=== PATIENT | male | born 1935 | race Caucasian/White ===

== ENCOUNTER → 2017-04-03 | Outpatient (CLI) | payer MEDICARE, OTHER ==
--- NOTE | 2017-04-03 11:50 | RADRPT ---
PROCEDURE: XR Left Hip and pelvis. CLINICAL INDICATION: Left hip pain. Pelvic pain. TECHNIQUE: Two views. Frontal pelvis and lateral left hip. COMPARISON: 01/27/2013. FINDINGS: There is no fracture or dislocation. The soft tissues are normal. There is a total right hip arthroplasty which appears satisfactory. There are severe degenerative ch anges of the left hip with joint space narrowing, osteophytes, subarticular sclerosis, subarticular cysts, and mild deformity. Multiple surgical clips are present in the pelvis inferiorly. The upper pelvis is not included on the images. There is no lytic lesion. IMPRESSION: 1. Total right hip arthroplasty. 2. Severe degenerative changes of the left hip. 3. Multiple surgical clips in the pelvis inferiorly. 4. Upper pelvis not included on the images. RPTAT: QQ .Colt Chang MD, Date Time Electronically viewed and signed by .Colt Chang MD, on 04/03/2017 11:50 .R/
--- NOTE | 2017-04-04 03:19 | HKNOTE ---
DATE OF SERVICE: 04/03/2017 MAIN COMPLAINT: Pain in the left hip. HISTORY OF MAIN COMPLAINT: The patient is an 81-year-old male who complains of pain in his left hip which has been present for about 6 to 8 months. The patient has previously undergone a right total hip replacement which was performed by me in October of 2005. He has been totally delighted with the result of his right hip replacement. He saw me last in 2012 complaining of pain in his opposite hip . I diagnosed lumbar radiculopathy and referred him to a spine surgeon. Dr. Rojas performed a lumb ar laminectomy in July of 2013 and he got complete relief of his pain. The left groin pain started about 6 to 8 months ago without any history of injury. PRESENT COMPLAINTS: The pain is predominantly in the left groin, but radiates somewhat laterally to wards the greater trochanter. Pain is aggravated by walking, weightbearing and stair climbing. He is not able to run. He does not get rest pain. He takes Aleve or Tylenol for the pain. He has no numbness or tingling in his legs. On a level surface, he can walk no more than [address]. He does not use a walking aid. He feels unsteady walking most of the time. He does not parra ve a clear-cut limp. His leg lengths feel equal. He cannot clip his toenails or tie his shoelaces on the left side. SPORTING ACTIVITIES: None. PAST ORTHOPEDIC HISTORY AND PREVIOUS ORTHOPEDIC OPERATIONS: 1. Right hip replacement by Dr. Gray, 2005. 2. Lumbar spine surgery, 2013. PRIOR CORTISONE INTAKE: One injection into his hip "a long time ago," which did not work. ALCOHOL INTAKE: One glass of wine and one vodka drink daily. OTHER JOINT PROBLEMS: Left knee occasionally hurts. No locking. No swelling. No instability. Wayne bradford had a Sanchez's cyst in the left knee a year or two ago, which was treated with physical therapy and it went away. BLOOD TESTS FOR ARTHRITIS: None. PRIOR INJURIES TO HIPS OR KNEES: None. WORK STATUS: Patient is a retired stationary steam engineer. PAST MEDICAL HISTORY: 1. Hypertension. 2. History of prostate cancer. PAST SURGICAL HISTORY: Right hip replacement by Dr. Gray, 2005. Lumbar spine surgery by Dr. Rojas, July 2013. Gallbladder removed, Dr. Mcclain, January 2014. Prostatectomy, Dr. Martinez, 1996 . DRUG ALLERGIES: VISAPAC (USED IN CAT SCANS). MEDICATIONS: 1. Atenolol. 2. Amlodipine. 3. Crestor. 4. Aspirin. 5. Multivitamins. 6. Avodart. FAMILY HISTORY: Noncontributory other than history of "heart problems." SYSTEMS REVIEW: Difficulty with urination, excess night urination, hypertension, gait disturbance, otherwise entirely negative. HABITS: Patient does not smoke. He drinks 2 alcoholic beverages a night. SLAG MOTOR OPERATOR: Dr. Krzysztof Frances, [facility], [address], [place], [place] [address] ) PHYSICAL EXAMINATION: GENERAL: A remarkably youthful and fit-looking 81-year-old male. He walks without a walking aid. VITAL SIGNS: Height 5 feet 10 inches, weight 180 pounds. Blood pressure 172/75, temperature 98.2. NEUROLOGIC: Motor examination reveals no muscle deficit in the lower extremities. Deep tendon refle xes in the lower extremities: Right knee jerk plus, left knee jerk plus, right ankle jerk plus, lef t ankle jerk plus. Straight leg raising is negative bilaterally at 80 degrees. Lasegue and KENNA yamilet ts are negative. RIGHT HIP: A full range of motion without pain. LEFT HIP: Flexion 95 degrees, external rotation 35 degrees, internal rotation -10 degrees, abductio n 35 degrees, external rotation contracture 10 degrees. Pain at all limits of left hip motion. No tenderness anywhere around the left hip. RIGHT KNEE: The right knee shows normal alignment. Active and passive extension is 0 degrees. Activ e and passive flexion is 135 degrees. The medial and lateral collateral ligaments and cruciate ligam ents are intact. Vangie test is negative. There is no effusion, tenderness, scarring, crepitus, or cysts. The patella tracks normally. There is no tenderness on the articular surface of the patella o r in the patellar groove. The Q angle is normal. LEFT KNEE: The left knee shows normal alignment. Active and passive extension is 0 degrees. Active and passive flexion is 135 degrees. The medial and lateral collateral ligaments and cruciate ligamen ts are intact. Vangie test is negative. There is no effusion, tenderness, scarring, crepitus, or cy sts. The patella tracks normally. There is no tenderness on the articular surface of the patella or in the patellar groove. The Q angle is normal. IMAGING: Plain x-rays of the pelvis and bilateral hips obtained today at the [facility] were reviewed. The right hip shows total hip replacement components, all well aligned and a ll well attached to the bone without evidence of loosening or osteolysis. No wear seen in the socke t liner. Left hip seen on the same images shows exceedingly severe degenerative osteoarthritis of the left hi p joint with complete ledg-jg-btgx contact throughout the surfaces of the socket and the femoral hea d, subchondral sclerosis, small interosseous cyst formation. DIAGNOSES: 1. 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 2. Status post right total hip replacement. 3. Status post prostatectomy for prostate cancer. 4. Hypertension. MANAGEMENT: Patient is advised that he will definitely need to have a left hip replacement at some time in the near future. The surgery and some of the major possible complications were discussed wi th him in a fair amount of detail. The patient was given my manual titled "Arthritis of the Hip Joint" which contains information elizabeth rning the various alternatives of treatment. It includes various forms of conservative treatment, in cluding the use of nonsteroidal anti-inflammatory medications and their dangers. Various surgical al ternatives are discussed. The technique of total hip replacement is discussed in detail, including p ossible complications. Included also is a section on the possible complications of blood transfusion , a section on postoperative precautions, and an exercise program to follow at home after total hip replacement. The long-term care of a total hip replacement implant is also covered in detail. The wayne bradford was instructed to read this manual in its entirety since it is, in and of itself, a form of in formed consent. After reading this manual, the patient will make a list of further questions that clara y not have been covered adequately. The patient was further advised that this manual, although exhau stive in nature, is only intended to supplement and complement a one-on-one discussion with me. The patient was referred to my website, [employer]. He was advised that because of my own back problems, for which I will soon be having surgery, I am r eferring him to my associate, Dr. Bharathi Hatch. The patient was introduced to Dr. Hatch today i n my office. When he is ready to schedule his surgery, we will contact our burn table operator, Maximo Duque, who will arrange for preoperative medical clearance, as well as cardiac clearance. Patient will also r eturn to see Dr. Hatch for a full consultation prior to his surgery. He indicates that he would like to have the surgery "after the new year." Dictated By: JEMIMA KIDD/MISSY Conf#: [id number] DID#: [id number]
--- NOTE | 2017-04-04 03:19 | HKNOTE ---
DATE OF SERVICE: 04/03/2017 MAIN COMPLAINT: Pain in the left hip. HISTORY OF MAIN COMPLAINT: The patient is an 81-year-old male who complains of pain in his left hip which has been present for about 6 to 8 months. The patient has previously undergone a right total hip replacement which was performed by me in October of 2005. He has been totally delighted with the result of his right hip replacement. He saw me last in 2012 complaining of pain in his opposite hip . I diagnosed lumbar radiculopathy and referred him to a spine surgeon. Dr. Rojas performed a lumb ar laminectomy in July of 2013 and he got complete relief of his pain. The left groin pain started about 6 to 8 months ago without any history of injury. PRESENT COMPLAINTS: The pain is predominantly in the left groin, but radiates somewhat laterally to wards the greater trochanter. Pain is aggravated by walking, weightbearing and stair climbing. He is not able to run. He does not get rest pain. He takes Aleve or Tylenol for the pain. He has no numbness or tingling in his legs. On a level surface, he can walk no more than [address]. He does not use a walking aid. He feels unsteady walking most of the time. He does not parra ve a clear-cut limp. His leg lengths feel equal. He cannot clip his toenails or tie his shoelaces on the left side. SPORTING ACTIVITIES: None. PAST ORTHOPEDIC HISTORY AND PREVIOUS ORTHOPEDIC OPERATIONS: 1. Right hip replacement by Dr. Gray, 2005. 2. Lumbar spine surgery, 2013. PRIOR CORTISONE INTAKE: One injection into his hip "a long time ago," which did not work. ALCOHOL INTAKE: One glass of wine and one vodka drink daily. OTHER JOINT PROBLEMS: Left knee occasionally hurts. No locking. No swelling. No instability. Wayne bradford had a Sanchez's cyst in the left knee a year or two ago, which was treated with physical therapy and it went away. BLOOD TESTS FOR ARTHRITIS: None. PRIOR INJURIES TO HIPS OR KNEES: None. WORK STATUS: Patient is a retired staff design engineer. PAST MEDICAL HISTORY: 1. Hypertension. 2. History of prostate cancer. PAST SURGICAL HISTORY: Right hip replacement by Dr. Gray, 2005. Lumbar spine surgery by Dr. Rojas, July 2013. Gallbladder removed, Dr. Mcclain, January 2014. Prostatectomy, Dr. Martinez, 1996 . DRUG ALLERGIES: VISAPAC (USED IN CAT SCANS). MEDICATIONS: 1. Atenolol. 2. Amlodipine. 3. Crestor. 4. Aspirin. 5. Multivitamins. 6. Avodart. FAMILY HISTORY: Noncontributory other than history of "heart problems." SYSTEMS REVIEW: Difficulty with urination, excess night urination, hypertension, gait disturbance, otherwise entirely negative. HABITS: Patient does not smoke. He drinks 2 alcoholic beverages a night. COMPUTER SYSTEMS SUPPORT SPECIALIST: Dr. Krzysztof Frances, [facility], [address], [place], [place] [address] ) PHYSICAL EXAMINATION: GENERAL: A remarkably youthful and fit-looking 81-year-old male. He walks without a walking aid. VITAL SIGNS: Height 5 feet 10 inches, weight 180 pounds. Blood pressure 172/75, temperature 98.2. NEUROLOGIC: Motor examination reveals no muscle deficit in the lower extremities. Deep tendon refle xes in the lower extremities: Right knee jerk plus, left knee jerk plus, right ankle jerk plus, lef t ankle jerk plus. Straight leg raising is negative bilaterally at 80 degrees. Lasegue and KENNA yamilet ts are negative. RIGHT HIP: A full range of motion without pain. LEFT HIP: Flexion 95 degrees, external rotation 35 degrees, internal rotation -10 degrees, abductio n 35 degrees, external rotation contracture 10 degrees. Pain at all limits of left hip motion. No tenderness anywhere around the left hip. RIGHT KNEE: The right knee shows normal alignment. Active and passive extension is 0 degrees. Activ e and passive flexion is 135 degrees. The medial and lateral collateral ligaments and cruciate ligam ents are intact. Vangie test is negative. There is no effusion, tenderness, scarring, crepitus, or cysts. The patella tracks normally. There is no tenderness on the articular surface of the patella o r in the patellar groove. The Q angle is normal. LEFT KNEE: The left knee shows normal alignment. Active and passive extension is 0 degrees. Active and passive flexion is 135 degrees. The medial and lateral collateral ligaments and cruciate ligamen ts are intact. Vangie test is negative. There is no effusion, tenderness, scarring, crepitus, or cy sts. The patella tracks normally. There is no tenderness on the articular surface of the patella or in the patellar groove. The Q angle is normal. IMAGING: Plain x-rays of the pelvis and bilateral hips obtained today at the [facility] were reviewed. The right hip shows total hip replacement components, all well aligned and a ll well attached to the bone without evidence of loosening or osteolysis. No wear seen in the socke t liner. Left hip seen on the same images shows exceedingly severe degenerative osteoarthritis of the left hi p joint with complete lqqb-zn-aygy contact throughout the surfaces of the socket and the femoral hea d, subchondral sclerosis, small interosseous cyst formation. DIAGNOSES: 1. 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 2. Status post right total hip replacement. 3. Status post prostatectomy for prostate cancer. 4. Hypertension. MANAGEMENT: Patient is advised that he will definitely need to have a left hip replacement at some time in the near future. The surgery and some of the major possible complications were discussed wi th him in a fair amount of detail. The patient was given my manual titled "Arthritis of the Hip Joint" which contains information elizabeth rning the various alternatives of treatment. It includes various forms of conservative treatment, in cluding the use of nonsteroidal anti-inflammatory medications and their dangers. Various surgical al ternatives are discussed. The technique of total hip replacement is discussed in detail, including p ossible complications. Included also is a section on the possible complications of blood transfusion , a section on postoperative precautions, and an exercise program to follow at home after total hip replacement. The long-term care of a total hip replacement implant is also covered in detail. The wayne bradford was instructed to read this manual in its entirety since it is, in and of itself, a form of in formed consent. After reading this manual, the patient will make a list of further questions that clara y not have been covered adequately. The patient was further advised that this manual, although exhau stive in nature, is only intended to supplement and complement a one-on-one discussion with me. The patient was referred to my website, [employer]. He was advised that because of my own back problems, for which I will soon be having surgery, I am r eferring him to my associate, Dr. Bharathi Hatch. The patient was introduced to Dr. Hatch today i n my office. When he is ready to schedule his surgery, we will contact our doctor of dental surgery, Maximo Duque, who will arrange for preoperative medical clearance, as well as cardiac clearance. Patient will also r eturn to see Dr. Hatch for a full consultation prior to his surgery. He indicates that he would like to have the surgery "after the new year." Dictated By: JEMIMA KIDD/MISSY Conf#: [id number] DID#: [id number]
--- NOTE | 2017-04-04 03:19 | HKNOTE ---
DATE OF SERVICE: 04/03/2017 MAIN COMPLAINT: Pain in the left hip. HISTORY OF MAIN COMPLAINT: The patient is an 81-year-old male who complains of pain in his left hip which has been present for about 6 to 8 months. The patient has previously undergone a right total hip replacement which was performed by me in October of 2005. He has been totally delighted with the result of his right hip replacement. He saw me last in 2012 complaining of pain in his opposite hip . I diagnosed lumbar radiculopathy and referred him to a spine surgeon. Dr. Rojas performed a lumb ar laminectomy in July of 2013 and he got complete relief of his pain. The left groin pain started about 6 to 8 months ago without any history of injury. PRESENT COMPLAINTS: The pain is predominantly in the left groin, but radiates somewhat laterally to wards the greater trochanter. Pain is aggravated by walking, weightbearing and stair climbing. He is not able to run. He does not get rest pain. He takes Aleve or Tylenol for the pain. He has no numbness or tingling in his legs. On a level surface, he can walk no more than [address]. He does not use a walking aid. He feels unsteady walking most of the time. He does not parra ve a clear-cut limp. His leg lengths feel equal. He cannot clip his toenails or tie his shoelaces on the left side. SPORTING ACTIVITIES: None. PAST ORTHOPEDIC HISTORY AND PREVIOUS ORTHOPEDIC OPERATIONS: 1. Right hip replacement by Dr. Gray, 2005. 2. Lumbar spine surgery, 2013. PRIOR CORTISONE INTAKE: One injection into his hip "a long time ago," which did not work. ALCOHOL INTAKE: One glass of wine and one vodka drink daily. OTHER JOINT PROBLEMS: Left knee occasionally hurts. No locking. No swelling. No instability. Wayne bradford had a Sanchez's cyst in the left knee a year or two ago, which was treated with physical therapy and it went away. BLOOD TESTS FOR ARTHRITIS: None. PRIOR INJURIES TO HIPS OR KNEES: None. WORK STATUS: Patient is a retired mechanical maintenance engineer. PAST MEDICAL HISTORY: 1. Hypertension. 2. History of prostate cancer. PAST SURGICAL HISTORY: Right hip replacement by Dr. Gray, 2005. Lumbar spine surgery by Dr. Rojas, July 2013. Gallbladder removed, Dr. Mcclain, January 2014. Prostatectomy, Dr. Martinez, 1996 . DRUG ALLERGIES: VISAPAC (USED IN CAT SCANS). MEDICATIONS: 1. Atenolol. 2. Amlodipine. 3. Crestor. 4. Aspirin. 5. Multivitamins. 6. Avodart. FAMILY HISTORY: Noncontributory other than history of "heart problems." SYSTEMS REVIEW: Difficulty with urination, excess night urination, hypertension, gait disturbance, otherwise entirely negative. HABITS: Patient does not smoke. He drinks 2 alcoholic beverages a night. ORDER FILLER: Dr. Krzysztof Frances, [facility], [address], [place], [place] [address] ) PHYSICAL EXAMINATION: GENERAL: A remarkably youthful and fit-looking 81-year-old male. He walks without a walking aid. VITAL SIGNS: Height 5 feet 10 inches, weight 180 pounds. Blood pressure 172/75, temperature 98.2. NEUROLOGIC: Motor examination reveals no muscle deficit in the lower extremities. Deep tendon refle xes in the lower extremities: Right knee jerk plus, left knee jerk plus, right ankle jerk plus, lef t ankle jerk plus. Straight leg raising is negative bilaterally at 80 degrees. Lasegue and KENNA yamilet ts are negative. RIGHT HIP: A full range of motion without pain. LEFT HIP: Flexion 95 degrees, external rotation 35 degrees, internal rotation -10 degrees, abductio n 35 degrees, external rotation contracture 10 degrees. Pain at all limits of left hip motion. No tenderness anywhere around the left hip. RIGHT KNEE: The right knee shows normal alignment. Active and passive extension is 0 degrees. Activ e and passive flexion is 135 degrees. The medial and lateral collateral ligaments and cruciate ligam ents are intact. Vangie test is negative. There is no effusion, tenderness, scarring, crepitus, or cysts. The patella tracks normally. There is no tenderness on the articular surface of the patella o r in the patellar groove. The Q angle is normal. LEFT KNEE: The left knee shows normal alignment. Active and passive extension is 0 degrees. Active and passive flexion is 135 degrees. The medial and lateral collateral ligaments and cruciate ligamen ts are intact. Vangie test is negative. There is no effusion, tenderness, scarring, crepitus, or cy sts. The patella tracks normally. There is no tenderness on the articular surface of the patella or in the patellar groove. The Q angle is normal. IMAGING: Plain x-rays of the pelvis and bilateral hips obtained today at the [facility] were reviewed. The right hip shows total hip replacement components, all well aligned and a ll well attached to the bone without evidence of loosening or osteolysis. No wear seen in the socke t liner. Left hip seen on the same images shows exceedingly severe degenerative osteoarthritis of the left hi p joint with complete mgno-wa-kvtl contact throughout the surfaces of the socket and the femoral hea d, subchondral sclerosis, small interosseous cyst formation. DIAGNOSES: 1. 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 2. Status post right total hip replacement. 3. Status post prostatectomy for prostate cancer. 4. Hypertension. MANAGEMENT: Patient is advised that he will definitely need to have a left hip replacement at some time in the near future. The surgery and some of the major possible complications were discussed wi th him in a fair amount of detail. The patient was given my manual titled "Arthritis of the Hip Joint" which contains information elizabeth rning the various alternatives of treatment. It includes various forms of conservative treatment, in cluding the use of nonsteroidal anti-inflammatory medications and their dangers. Various surgical al ternatives are discussed. The technique of total hip replacement is discussed in detail, including p ossible complications. Included also is a section on the possible complications of blood transfusion , a section on postoperative precautions, and an exercise program to follow at home after total hip replacement. The long-term care of a total hip replacement implant is also covered in detail. The wayne bradford was instructed to read this manual in its entirety since it is, in and of itself, a form of in formed consent. After reading this manual, the patient will make a list of further questions that clara y not have been covered adequately. The patient was further advised that this manual, although exhau stive in nature, is only intended to supplement and complement a one-on-one discussion with me. The patient was referred to my website, [employer]. He was advised that because of my own back problems, for which I will soon be having surgery, I am r eferring him to my associate, Dr. Bharathi Hatch. The patient was introduced to Dr. Hatch today i n my office. When he is ready to schedule his surgery, we will contact our clinic scheduler, Maximo Duque, who will arrange for preoperative medical clearance, as well as cardiac clearance. Patient will also r eturn to see Dr. Hatch for a full consultation prior to his surgery. He indicates that he would like to have the surgery "after the new year." Dictated By: JEMIMA KIDD/MISSY Conf#: [id number] DID#: [id number]
== END | disposition home or self-care (01) ==
LOC: HKI 10:27
DX: M16.12 Unilateral primary osteoarthritis, left hip (principal); I10 Essential (primary) hypertension; Z96.641 Presence of right artificial hip joint; Z85.46 Personal history of malignant neoplasm of prostate
CPT/HCPCS: 73502; G0463